=== PATIENT | male | born 1955 | race Caucasian/White ===

== ENCOUNTER → 2016-11-30 | Outpatient (CLI) | payer OTHER ==
[~2016-11-30] MED LIST: ACYCLOVIR 800800 MG PO; ASPIR 8181 MG PO; ATORVASTATIN CA40 MG PO; CENTRUM SILVER1 EAC2 PO; CO Q-10100 MG PO; HYDROCODONE-AP1 EAC6 PO; ISENTRESS400 MG PO; PREVACID30 MG PO; TOPROL XL25 MG PO; TRUVADA 200 MG1 EACH PO
== END ==
LOC: RAD 15:18
DX: K21.9 Gastro-esophageal reflux disease without esophagitis (principal)

== ENCOUNTER → 2020-02-07 | Outpatient (CLI) | payer OTHER | LOC: ULTRA 09:16 | PROVIDERS: ATTEND Family Medicine | DX: N28.1 Cyst of kidney, acquired (principal); R94.5 Abnormal results of liver function studies; K76.0 Fatty (change of) liver, not elsewhere classified ==